=== PATIENT | female | born 1995 | race Caucasian/White ===

== ENCOUNTER 2023-07-29 17:10 | Outpatient (CLI) | payer OTHER ==
--- NOTE | 2023-07-29 20:08 | Ultrasound Report ---
PROCEDURE: OB 1st Trimester INDICATIONS: POSITIVE TEST OUTSIDE/PRIOR DATING DATA: Last menstrual period (LMP): 06/05/2023. LMP-based estimated date of delivery (BOY): 03/11/2024. First dating scan (date and location): 07/29/2023. Estimated date of delivery (BOY) from first dating scan: 03/08/2024. TECHNIQUE: Real-time scanning was performed of the fetus and maternal pelvic organs, with image documentation. COMPARISON: None. FINDINGS: Intrauterine gestational sac present. Embryo: [place]-rump length measures 1.7 cm corresponding to 8 weeks 1 day Heart rate: 167 bpm. Other: Subchorionic hemorrhage is present measuring 1.6 x 1.2 x 1.8 cm. Measurement variability in dating: +/- 4 weeks by LMP, +/- 7 days by mean sac diameter (use before 6 weeks gestation if crown-rump length not able to be measured), +/- 5 days by crown-rump length (6-12 weeks gestation). Maternal organs: Ovaries appear within normal limits. IMPRESSION: Single live intrauterine with gestational age of 8 weeks 1 day. Recommend follow-up imaging at 20-22 weeks for dates and anatomy. Reviewed by: Shital Hedrick MD on 07/29/2023 8:07 PM PDT Approved by: Shital Hedrick MD on 07/29/2023 8:07 PM PDT Station ID: [id number]
== END 2023-07-29 17:11 | disposition home or self-care (01) ==
LOC: DI 17:10
PROVIDERS: ATTEND Obstetrics & Gynecology
DX: Z34.01 Encounter for supervision of normal first pregnancy, first trimester (principal)

== ENCOUNTER 2023-08-01 08:47 | Outpatient (CLI) | payer OTHER ==
[2023-08-01 12:31] LABS: BASOPHILS % (AUTO) 0.4 %; EOSINOPHILS # (AUTO) 0.1 10^3/uL (0.0-0.7); EOSINOPHILS % (AUTO) 1.2 %; HGB - HEMOGLOBIN 13.3 g/dL (12.0-16.0); LYMPHOCYTES # (AUTO) 1.8 10^3/uL (1.5-3.5); LYMPHOCYTES % (AUTO) 24.6 %; MEAN CORPUSCULAR HEMOGLOBIN 30.2 pg (27.0-31.0); MEAN CORPUSCULAR HGB CONC 34.1 g/dL (32.0-36.0); MEAN CORPUSCULAR VOLUME 88.4 fL (81.0-99.0); MEAN PLATELET VOLUME 10.5 fL (7.9-10.8); MONOCYTES # (AUTO) 0.5 10^3/uL (0.0-1.0); MONOCYTES % (AUTO) 6.1 %; NEUTROPHILS # (AUTO) 4.9 10^3/uL (1.5-6.6); NEUTROPHILS % (AUTO) 67.4 %; PLT - PLATELET COUNT 226 10^3/uL (130-450); RED BLOOD COUNT 4.41 10^6/uL (4.20-5.40); RED CELL DISTRIBUTION WIDTH 12.1 % (12.0-15.0); WHITE BLOOD COUNT 7.3 x10^3/uL (4.8-10.8)
[2023-08-02 03:12] LABS: HCV AB Non Reactive (Non Reactive)
[2023-08-02 08:17] LABS: HBsAG SCREEN Negative (Negative)
[2023-08-02 09:16] LABS: RPR Non Reactive (Non Reactive)
[2023-08-02 10:18] LABS: VARICELLA-ZOSTER AB IGG 1498 index (Immune >165)
== END 2023-08-01 08:48 | disposition home or self-care (01) ==
LOC: LAB.N 08:47
PROVIDERS: ATTEND Obstetrics & Gynecology
DX: Z34.00 Encounter for supervision of normal first pregnancy, unspecified trimester (principal); Z36.89 Encounter for other specified antenatal screening
CPT/HCPCS: 36415; 81001; 85025; 86592; 86762; 86787; 86803; 86850; 86900; 86901; 87086; 87340; 87389

== ENCOUNTER 2023-08-13 08:00 | Outpatient (CLI) | payer OTHER ==
[2023-08-13 20:21] LABS: CHLAMYDIA TRACHOMATIS DNA NEGATIVE (NEGATIVE); NEISSERIA GONORRHOEAE DNA NEGATIVE (NEGATIVE); TRICHOMONAS VAGINALIS DNA NEGATIVE (NEGATIVE)
== END 2023-08-13 23:59 | disposition home or self-care (01) ==
LOC: LAB.WC 08:00
PROVIDERS: ATTEND Obstetrics & Gynecology
DX: Z11.3 Encounter for screening for infections with a predominantly sexual mode of transmission (principal)
CPT/HCPCS: 87491; 87591; 87661

== ENCOUNTER 2023-08-14 18:10 | Outpatient (CLI) | payer OTHER | END 2023-08-14 18:11 | disposition home or self-care (01) | LOC: LAB 18:10 | PROVIDERS: ATTEND Obstetrics & Gynecology | DX: Z34.00 Encounter for supervision of normal first pregnancy, unspecified trimester (principal); Z36.89 Encounter for other specified antenatal screening | CPT/HCPCS: 36415; 87389 ==

== ENCOUNTER 2023-10-14 16:16 | Emergency (ER) | payer OTHER ==
[2023-10-14 17:01] LABS: BASOPHILS % (AUTO) 0.2 %; EOSINOPHILS % (AUTO) 0.3 %; HCT - HEMATOCRIT 43.5 % (37.0-47.0); HGB - HEMOGLOBIN 14.3 g/dL (12.0-16.0); LYMPHOCYTES # (AUTO) 0.5 10^3/uL (1.5-3.5); MEAN CORPUSCULAR HGB CONC 32.9 g/dL (32.0-36.0); MEAN CORPUSCULAR VOLUME 91.2 fL (81.0-99.0); MEAN PLATELET VOLUME 9.8 fL (7.9-10.8); MONOCYTES # (AUTO) 0.3 10^3/uL (0.0-1.0); MONOCYTES % (AUTO) 2.6 %; NEUTROPHILS # (AUTO) 8.8 10^3/uL (1.5-6.6); NEUTROPHILS % (AUTO) 91.6 %; PLT - PLATELET COUNT 213 10^3/uL (130-450); RED BLOOD COUNT 4.77 10^6/uL (4.20-5.40); RED CELL DISTRIBUTION WIDTH 12.5 % (12.0-15.0); WHITE BLOOD COUNT 9.7 x10^3/uL (4.8-10.8)
[2023-10-14 17:17] LABS: ALBUMIN 4.1 g/dL (3.2-5.5); ALBUMIN/GLOBULIN RATIO 1.2 (1.0-2.2); ALKALINE PHOSPHATASE 63 IU/L (42-121); ALT ALANINE AMINOTRANSFERASE 15 IU/L (10-60); AST ASPARTATE AMINOTRANSFERASE 15 IU/L (10-42); BILIRUBIN,TOTAL 0.4 mg/dL (0.2-1.0); BUN - BLOOD UREA NITROGEN 9 mg/dL (6-20); CALCIUM 9.7 mg/dL (8.5-10.3); CARBON DIOXIDE - CO2 22 mmol/L (21-32); CHLORIDE 100 mmol/L (101-111); CREATININE 0.5 mg/dL (0.6-1.3); GFR - MDRD 147 (>89); GLUCOSE 105 mg/dL (74-104); POTASSIUM 3.9 mmol/L (3.5-4.5); SODIUM 132 mmol/L (135-145); TOTAL PROTEIN 7.6 g/dL (6.4-8.9)
[2023-10-14 17:20] LABS: LIPASE < 10 U/L (11-82)
--- NOTE | 2023-10-14 18:07 | ED Physician Documentation ---
PD HPI ABD PAIN - Stated complaint Stated Complaint: ABD PX/BACK PX - Chief complaint Chief Complaint: Abd Pain - History obtained from History obtained from: Patient - Additional information Additional information: This is a very nice 28-year-old female who presents with left upper abdominal pain today. The pain does not radiate but is present directly from the left upper abdomen and into the back. She has had no nausea but vomited x 1 and actually feels better now after vomiting, no urinary symptoms including dysuria urgency or frequency, no flank pain, she has no diarrhea or constipation. She has never had similar pain throughout . She continues to feel movement and had a reassuring OB exam yesterday, and previously has had an ultrasound confirming intrauterine . She has not had any vaginal bleeding. Patient feeling quite a bit better after vomiting here. Review of Systems Constitutional: reports: Fever Cardiac: reports: Reviewed and negative Respiratory: reports: Reviewed and negative GI: reports: Abdominal Pain, Vomiting : reports: Reviewed and negative PD PAST MEDICAL HISTORY - Past Medical History Past Medical History: No - Past Surgical History Past Surgical History: Yes HEENT: Tonsil/Adenoidectomy - Present Medications Home Medications: Ambulatory Orders Medication Instructions Recorded Confirmed Ondansetron Odt [Zofran] 4 mg TL Q6H PRN #10 tablet 10/14/23 Pnv 119/Iron Fum/Folic Acid 1 tab PO DAILY 10/14/23 10/14/23 [ 19 Tablet] - Allergies Allergies/Adverse Reactions: Allergies Allergy/AdvReac Type Severity Reaction Status Date / Time Penicillins Allergy Unknown Verified 10/14/23 16:31 - Social History Does the pt smoke?: No Smoking Status: Never smoker Does the pt drink ETOH?: No Does the pt have substance abuse?: No - Immunizations Immunizations are current?: Yes - POLST Patient has POLST: No PD ED PE NORMAL - Vitals Vital signs reviewed: Yes - General General: Alert and oriented X 3, No acute distress, Well developed/nourished - HEENT HEENT: Atraumatic, Moist mucous membranes - Cardiac Cardiac: RRR, No murmur - Respiratory Respiratory: No respiratory distress, Clear bilaterally - Abdomen Abdomen: Normal bowel sounds, Soft, Non tender, Non distended, Other ( heart tones 163) - Back Back: No CVA TTP, No spinal TTP Results - Vitals Vitals: Vital Signs - 24 hr 10/14/23 10/14/23 16:32 18:35 Temperature 36.8 C Heart Rate 100 92 Respiratory 16 14 Rate Blood Pressure 112/77 106/62 O2 Saturation 97 100 Oxygen O2 Source Room air - Labs Labs: Laboratory Tests 10/14/23 10/14/23 10/14/23 16:56 16:56 18:02 WBC 9.7 RBC 4.77 Hgb 14.3 Hct 43.5 MCV 91.2 MCH 30.0 MCHC 32.9 RDW 12.5 Plt Count 213 MPV 9.8 Neut # (Auto) 8.8 H Lymph # (Auto) 0.5 L [place] # (Auto) 0.3 Eos # (Auto) 0.0 Baso # (Auto) 0.0 Absolute Nucleated RBC 0.00 Nucleated RBC % 0.0 Sodium 132 L Potassium 3.9 Chloride 100 L Carbon Dioxide 22 Anion Gap 10.0 BUN 9 Creatinine 0.5 L Estimated GFR (MDRD) 147 Glucose 105 H Calcium 9.7 Total Bilirubin 0.4 AST 15 ALT 15 Alkaline Phosphatase 63 Total Protein 7.6 Albumin 4.1 Globulin 3.5 Albumin/Globulin Ratio 1.2 Lipase < 10 L Urine Color YELLOW Urine Clarity CLEAR Urine pH 5.5 Ur Specific [place] >=1.030 H Urine Protein NEGATIVE Urine Glucose (UA) NEGATIVE Urine Ketones NEGATIVE Urine Occult Blood NEGATIVE Urine Nitrite NEGATIVE Urine Bilirubin NEGATIVE Urine Urobilinogen 0.2 (NORMAL) Ur Leukocyte Esterase NEGATIVE Ur Microscopic Review NOT INDICATED Urine Culture Comments NOT INDICATED PD Medical Decision Making - ED course Complexity details: reviewed results, considered differential, d/w patient ED course: 28-year-old female presented with left upper abdominal pain as described in HPI. Patient is about 18 weeks , G1, P0. She is well-appearing here physical exam, afebrile nontoxic, not able to reproduce the pain right now, she states she actually feels quite a bit better after vomiting here. We obtained lab work which is reassuring including CBC, CMP, urinalysis. She has good heart tones at 163 and has already had ultrasound confirming intrauterine . I discussed with patient that at this time I did recommend supportive measures, I do not see emergent indication for imaging especially in the setting of . Recommended Tylenol if needed, bland diet primary clear liquids today and then advance slowly to bland diet tomorrow, and Zofran as needed. Return precautions reviewed in detail with the patient discharged home in stable condition. Departure - Departure Disposition: 01 Home, Self Care Clinical Impression: Abdominal pain Qualifiers: Abdominal location: left upper quadrant Qualified Code(s): R10.12 - Left upper quadrant pain Condition: Good Instructions: Abdominal Pain Prescriptions: Ondansetron Odt [Zofran] 4 mg TL Q6H PRN #10 tablet PRN Reason: Nausea / Vomiting Comments: Imelda, Your labs today look good and you did not have any concerning findings on your physical exam. The pain may have been from a gastroenteritis or can be from dehydration, constipation, kidney stone. You do not have any signs of a urinary tract infection or other abnormalities on your lab work today. Since you feel better after vomiting, I think we can discharge you home but if you have recurrence of symptoms or develop a fever or new concerns, please return to the ER. I have prescribed some Zofran for you as needed, this is for nausea. Forms: PCP List Discharge Date/Time: 10/14/23 18:44
[2023-10-14 18:11] LABS: BILIRUBIN,URINE NEGATIVE (NEGATIVE); GLUCOSE, URINE (UA) NEGATIVE (NEGATIVE); KETONES,URINE (UA) NEGATIVE (NEGATIVE); LEUKOCYTE ESTERASE, URINE NEGATIVE (NEGATIVE); NITRITE,URINE NEGATIVE (NEGATIVE); OCCULT BLOOD,URINE NEGATIVE (NEGATIVE); PH,URINE 5.5 PH (5.0-7.5); PROTEIN,URINE NEGATIVE (NEGATIVE); UROBILINOGEN,URINE 0.2 (NORMAL) E.U./dL (NORMAL)
[2023-10-14 18:12] LABS: CLARITY,URINE CLEAR (CLEAR)
[2023-10-14 18:43] VITALS: BP 106/62; O2SAT 100
== END 2023-10-14 18:44 | disposition home or self-care (01) ==
LOC: ED 16:16
DX: R10.12 Left upper quadrant pain (principal); R11.10 Vomiting, unspecified
CPT/HCPCS: 36415; 80053; 81001; 81003; 83690; 85025; 87086; 99283; 99284

== ENCOUNTER 2023-10-30 09:29 | Outpatient (CLI) | payer OTHER ==
--- NOTE | 2023-10-30 16:15 | Ultrasound Report ---
PROCEDURE: OB Anatomy Scan INDICATIONS: SUPERVISION OF OUTSIDE/PRIOR DATING DATA: Last menstrual period (LMP): 06/05/2023. LMP-based estimated date of delivery (BOY): 03/11/2024. First dating scan (date and location): 07/29/2023. Estimated date of delivery (BOY) from first dating scan: 03/08/2024. The below data below was generated using the ultrasound BOY of 03/08/2024 TECHNIQUE: Real-time scanning was performed of the fetus, with image documentation and biometric measurements. Endovaginal scanning: Not performed. COMPARISON: None. FINDINGS: General: A single living intrauterine gestation is present. Presentation: Variable Placenta: Placental position is posterior, without previa. Amniotic fluid index: 17.9 cm, 79th percentile for gestational age. heart rate: 147 beats per minute. Maternal cervical canal: 4.78 cm long; normal length is 2.5 cm or more. biometrics: Biparietal diameter: 5.0 cm, 21 weeks 1 day, 38.7 percentile Head circumference: 19.1 cm, 21 weeks 3 days, 36.6 percentile Abdominal circumference: 17.7 cm, 22 weeks 4 days, 78.4 percentile Femur length: 3.65 cm, 21 weeks 4 days, 46.2 percentile Estimated gestational age from initial scan: 21 weeks 3 days Composite gestational age from present scan: 21 weeks 3 days Estimated weight and percentile: 469.1 g, 76 percentile Measurement variability in biometric dating: +/- 10 days from 12-20 weeks gestation, +/- 2 weeks from 20-30 weeks gestation, +/- 3 weeks at 30 weeks gestation or later. Anatomic survey: Neuro: Ventricles are normal at less than 10 mm. Cisterna magna is normal at 3-11 mm. Cerebellum i s normal in size and morphology. Nuchal skin fold: Normal at less than 6 mm between 14 and 20 weeks gestational age. Face: Nose and lips, facial profile are normal. Spine: No evidence for spina bifida. Heart: 4-chambered heart is present, with normal ventricular outflow tracts. Diaphragm: Diaphragm is intact. Stomach: Left-sided stomach is present. Kidneys: No hydronephrosis. Normal is less than 5 mm in 2nd trimester, less than 7 mm in 3rd trimester. Cord: 3 vessel cord has orthotopic insertion. Bladder: Normal in size. Extremities: All 4 extremities are visualized. IMPRESSION: Single living intrauterine at 21 weeks 3 days, BOY of 03/08/2024. Normal anatomy survey. Estimated date weight of 469 g, 76th percentile. Reviewed by: cSott Huitron MD on 10/30/2023 4:14 PM PDT Approved by: Scott Huitron MD on 10/30/2023 4:14 PM PDT Station ID: [id number]
== END 2023-10-30 09:30 | disposition home or self-care (01) ==
LOC: DI 09:29
PROVIDERS: ATTEND Obstetrics & Gynecology
DX: Z34.02 Encounter for supervision of normal first pregnancy, second trimester (principal)

== ENCOUNTER 2024-03-01 12:57 | Inpatient (IN) ==
--- NOTE | 2024-03-01 13:40 | HISTORY & PHYSICAL EXAMINATION ---
Admit History Smoking Status: Never smoker Other Maternal History Other Maternal History: 28-year-old G1, P0 at 38 weeks 4 days gestation admitted for term labor. She has good movement. Denies loss of fluid. No ADAMES/BV or RUQP. No vaginal b leeding. Denies nausea and vomiting. Denies urinary urgency or dysuria. All other symptoms reviewed and were negative except per HPI. Course FOB [place] in [place] Pre- Weight: 169 BMI: 26.94 Blood type: O+ Antibody: negative CBC: PLT 226 HCT 39.0 HGB 13.3 RUB: immune VZV: immune HBsAg: negative HepC: NR RPR/AB-EIA: NR HIV: NR PAP: 1-2 years ago, normal per pt GC/CT: collected 08/12 negative HSV: denies Genetic testing: NIPT Negative. AFP ordered -not done Covid: declined Flu: 11/09 RSV: 01/15 FAS: ordered 09/14 (scheduled 10/29) Placenta: posterior without previa Cord: 3VC DEWAYNE: WNL EFW: 469g 76%ile 50gm OGCT: 117 TDAP: 01/07/24 Breast Pump: 02/01 3rd trimester H/H 12.2/36.9 PLT 199 GBS:self collected 02/12. PCN allergy: negative Contraception: undecided, has used Liletta in the past NST Procedure NST Procedure: NST Procedure Start Time 07:16 Stop Time 07:44 Meds/Allgy Home Medications Ambulatory Orders Medication Instructions Recorded Confirmed vitamins no.119-iron 1 tab PO DAILY 10/14/23 02/20/24 fumarate 29 mg-folic acid 1 mg tablet ( 19) breast pump #1 ea 02/20/24 02/20/24 Allergies Allergies Allergy/AdvReac Type Severity Reaction Status Date / Time Penicillins Allergy Unknown Verified 02/20/24 11:00 [facility] Medical History Medical History (Updated 03/01/24 @ 13:45 by Scooter Mckeon MD) Cyanosis Social History Social History (Updated 12/08/23 @ 08:53 by Dipika Esquivel MA) Smoking Status: Never smoker Do you vape?: No Do you feel safe in your home environment?: Yes Suffered physical, verbal, emotional, or financial abuse?: No History of Abuse: No ETOH Use: None Substance Use: denies use POLST Patient has POLST: No Review of Systems Status of ROS: 10 or more systems reviewed and unremarkable except as noted in history and below Physical Other Notes Labor Progress Note/Additional Text: General: Alert, oriented, no acute distress Head: Normal cephalic atraumatic Eyes: PERRLA, extraocular motions intact. Respiratory: Normal rate of respiration. No accessory muscle use, normal respir atory effort. Cardiovascular: Regular rate and rhythm Abdomen: Gravid, nontender, nondistended Extremities: Normal range of motion Neuro: Oriented x3. Normal movements Psych: Appropriate mood and affect. Normal judgment and insight SVE: 6/80/-2 FHT: 135 bpm baseline, moderate variability, accelerations present, no decelerations. Reactive NST [place]: 2 to 3 minutes Plan for Labor Plan For Labor I expect patient to be DC'd or transferred within 96 hours.: Yes Conclusion/Plan Problem List (1) 38 weeks gestation of : Plan: Admit to L&D, admit labs, epidural at patient's request. Anticipate amniotomy, anticipate . (2) Supervision of normal first in third trimester: (3) Uterine contractions:
[2024-03-01] MEDS ORDERED: lidocaine 1% 20 ML MDV ID PRN (14:22)
[2024-03-01] MEDS ORDERED: TRANEXAMIC ACID IN NACL 1,000 MG/100 ML BAG IV PRN (14:22)
[2024-03-01] MEDS ORDERED: LABETALOL 20 MG/4 ML SYRINGE IVP PRN ×3 (14:22)
[2024-03-01] MEDS ORDERED: OXYTOCIN 10 UNIT/ML VIAL IM PRN (14:22)
[2024-03-01] MEDS ORDERED: miSOPROStoL 200 MCG TABLET PR PRN (14:22)
[2024-03-01] MEDS ORDERED: SODIUM CHLORIDE FLUSH 0.9% 10 ML SYRINGE IVP PRN (14:22)
[2024-03-01] MEDS ORDERED: NIFEdipine 10 MG CAPSULE PO PRN (14:22)
[2024-03-01] MEDS ORDERED: METHYLERGONOVINE 0.2 MG/ML VIAL IM PRN (14:22)
[2024-03-01] MEDS ORDERED: miSOPROStoL 200 MCG TABLET BC PRN (14:22)
[2024-03-01] MEDS ORDERED: fentaNYL 100 MCG/2 ML VIAL IVP PRN (14:22)
[2024-03-01] MEDS ORDERED: TERBUTALINE 1 MG/ML VIAL SUBQ PRN (14:22)
[2024-03-01] MEDS ORDERED: hydrALAZINE INJ 20 MG/ML VIAL IVP PRN (14:22)
[2024-03-01 14:42] LABS: BASOPHILS % (AUTO) 0.2 %; EOSINOPHILS # (AUTO) 0.1 10^3/uL (0.0-0.7); EOSINOPHILS % (AUTO) 0.9 %; HGB - HEMOGLOBIN 13.2 g/dL (12.0-16.0); LYMPHOCYTES # (AUTO) 2.2 10^3/uL (1.5-3.5); MEAN CORPUSCULAR HEMOGLOBIN 30.6 pg (27.0-31.0); MEAN CORPUSCULAR HGB CONC 33.8 g/dL (32.0-36.0); MEAN CORPUSCULAR VOLUME 90.5 fL (81.0-99.0); MEAN PLATELET VOLUME 10.4 fL (7.9-10.8); MONOCYTES # (AUTO) 0.6 10^3/uL (0.0-1.0); MONOCYTES % (AUTO) 5.3 %; NEUTROPHILS # (AUTO) 8.6 10^3/uL (1.5-6.6); NEUTROPHILS % (AUTO) 74.2 %; PLT - PLATELET COUNT 225 10^3/uL (130-450); RED BLOOD COUNT 4.31 10^6/uL (4.20-5.40); RED CELL DISTRIBUTION WIDTH 13.2 % (12.0-15.0); WHITE BLOOD COUNT 11.5 x10^3/uL (4.8-10.8)
--- NOTE | 2024-03-01 15:30 | PHARMACY PROGRESS NOTE ---
Best Possible Medication History Admit Date and Time: 03/01/24 [id number] Home Medications Medication Instructions Recorded Confirmed Type vitamins no.119-iron 1 tab PO DAILY 10/14/23 03/01/24 History fumarate 29 mg-folic acid 1 mg tablet ( 19) breast pump #1 ea 02/20/24 02/20/24 Rx Processed by: Pharmacy (Medication reconciliation completed by clinical pharmacy technicianArnaud) Medications reviewed in ED?: No Medication History completed: Yes Patient Interview: Completed Secondary Source(s): Insurance records [facility] Statement: As the person ultimately responsible for medication therapy, providers are able to order a medication from an existing home medication list in [facility] via the "Reconcile Routine" prior to Confirmation of that medication by desktop support consultant. Such practice is discouraged except when the physician, in their clinical judgment, deems that a medical need exists for a medication without regard to previous use.
[2024-03-01] MEDS ORDERED: LIDOCAINE 2%-EPI 1:100000 20 ML MDV ONE (15:57)
[2024-03-01] MEDS ORDERED: ROPIVACAINE 0.2% 200 MG/100 ML BAG EP ONE (15:58)
[2024-03-01] MEDS: SODIUM CHLORIDE 0.9% 500 ML IV PRN (16:39)
[2024-03-01] MEDS ORDERED: ePHEDrine 50 MG/ML VIAL IVP ONE (16:40)
[2024-03-01] MEDS ORDERED: PHENYLEPHRINE HCL 0.5 MG/5 ML AMPULE ONE (16:40)
[2024-03-01] MEDS ORDERED: diphenhydrAMINE INJ 50 MG/ML VIAL IVP PRN (17:26)
[2024-03-01] MEDS ORDERED: ePHEDrine 50 MG/ML VIAL IVP PRN (17:26)
[2024-03-01] MEDS ORDERED: NALOXONE 0.4 MG/ML VIAL IVP PRN (17:26)
[2024-03-01] MEDS ORDERED: LACTATED RINGERS 500 ML IV ONE (17:26)
[2024-03-01] MEDS ORDERED: ONDANSETRON 4 MG/2 ML VIAL IVP PRN (17:26)
[2024-03-01] MEDS ORDERED: METOCLOPRAMIDE 10 MG/2 ML VIAL IVP PRN (17:26)
[2024-03-01] MEDS ORDERED: NALBUPHINE 10 MG/ML AMP IVP PRN (17:26)
--- NOTE | 2024-03-01 17:26 | ANESTHESIA PROCEDURE NOTE ---
Pre-Anesthesia VS, & Labs Diagnosis Surgical Diagnosis:: 38/4 weeks, in labor requests epidural Procedure Procedure: placement of labor epidural Vitals Height (in): 5 ft 7 in Weight (kg): 95 kg Body Mass Index: 32.8 BMI Classification: Obese NPO Last Fluid Intake: now on clears Is Patient ?: Yes Estimated Due Date:: 03/01/24 Lab Results Current Lab Results: Laboratory Tests 03/01/24 14:00: WBC 11.5 H, RBC 4.31, Hgb 13.2, Hct 39.0, MCV 90.5, MCH 30.6, MCHC 33.8, RDW 13.2, Plt Count 225, MPV 10.4, Neut # (Auto) 8.6 H, Lymph # (Auto) 2.2, [place] # (Auto) 0.6, Eos # (Auto) 0.1, Baso # (Auto) 0.0, Absolute Nucleated RBC 0.00, Nucleated RBC % 0.0, Blood Type O POSITIVE, Antibody Screen NEGATIVE Lab results reviewed: Yes 03/01/24 14:00 Meds/Allgy Home Medications Ambulatory Orders Medication Instructions Recorded Confirmed vitamins no.119-iron 1 tab PO DAILY 10/14/23 03/01/24 fumarate 29 mg-folic acid 1 mg tablet ( 19) breast pump #1 ea 02/20/24 02/20/24 Allergies Allergies Allergy/AdvReac Type Severity Reaction Status Date / Time Penicillins Allergy Unknown Verified 02/20/24 11:00 [facility] TO [facility] Medical History Medical History Cyanosis Social History Social History Smoking Status: Never smoker Do you dip or chew tobacco?: No Do you vape?: No Do you feel safe in your home environment?: Yes Suffered physical, verbal, emotional, or financial abuse?: No History of Abuse: No ETOH Use: None Substance Use: denies use POLST Patient has POLST: No Anesthesia Exam (Expanded) Exam General: Alert and Mild distress Dental: WNL Mouth Openin Fingerbreadth Neck Mobility: Normal Thyromental Distance: 4-6 cm Respiratory: Lungs clear Cardiovascular: Regular rate Plan Plan Anesthesia Type: Epidural Consent for Procedure(s) Verified and Reviewed: Yes Code Status: Attempt Resuscitation ASA Classification ASA classification: 2-Mild systemic disease Is this case an emergency?: No
[2024-03-01] MEDS ORDERED: SODIUM CHLORIDE 0.9% 500 ML IV ONE (18:12)
[2024-03-01] MEDS: SODIUM CHLORIDE FLUSH 0.9% 10 ML SYRINGE IVP SCH (18:26)
[2024-03-02] MEDS: ROPIVACAINE 0.2% 200 MG/100 ML BAG EP PRN (00:50)
[2024-03-02] MEDS ORDERED: CALCIUM CARBONATE CHEW 500 MG TABLET ONE (01:17)
[2024-03-02] MEDS: OXYTOCIN/SODIUM CHLORIDE 500 ML IV PRN (01:52)
[2024-03-02] MEDS ORDERED: SIMETHICONE CHEW 80 MG TABLET PO PRN (02:11)
[2024-03-02] MEDS ORDERED: ONDANSETRON 4 MG/2 ML VIAL IVP PRN (02:11)
[2024-03-02] MEDS ORDERED: CALCIUM CARBONATE CHEW 500 MG TABLET PO PRN (02:11)
--- NOTE | 2024-03-02 02:14 | DELIVERY NOTE ---
Delivery Note Labor Labor: positive Augmented by ARM Delivery Method Delivery Method: positive Spontaneous vaginal delivery Presentation Presentation: positive Vertex Nuchal Cord Nuchal Cord: positive None Amniotic Fluid Description Amniotic Fluid Description: positive Clear Laceration Laceration: positive 2nd degree and Perineal Suture Suture Type: positive Vicryl Suture Size: positive 3-0 : positive Placed in direct skin contact with mother sex: positive Male Cord Cord: positive 3 vessels Placenta Placenta: positive Intact Estimated Blood Loss Estimated Blood Loss (in cc): 400 Post Delivery Events Post Delivery Events: positive No post delivery events Delivery Comments (Free Text/Narrative) Delivery Comments (Free Text/Narrative): Preoperative Diagnoses 38 weeks gestation Term labor Postoperative Diagnoses Same Delivery of live ozuna Status post spontaneous vaginal delivery Summary Patient presented at 38 weeks gestation in active labor. Progressed throughout the day on her own with several triage visits until active labor. She continued inga regularly and received an epidural for pain control. Controlled amniotomy was performed and she continued to contract until complete and ready to push. Delivery Summary: Patient was placed in the dorsal lithotomy position. Upon maternal pushing the head was delivered atraumatically followed by the anterior shoulder, posterior shoulder, then the remainder of the infant's body. A male was delivered with APGARS of 9 at 1 minute and 9 at 5 minutes. The infant was placed on its mother's chest . After the cord finished pulsating, the umbilical cord was clamped times two and cut. The placenta delivered intact with three vessel cord. Placenta was not sent to pathology. Thirty units of Pitocin were added to the IV fluid and allowed to run freely. Uterine massage was performed until uterus was deemed firm. Upon inspection the perineum, she had a second-degree midline laceration that was repaired in a running fashion. Upon re-inspection the patient was hemostatic. Uterus again massaged and found to be firm. Needle and sponge counts were correct. Patient was stable and allowed to recover in L&D room. Infant was stable and remained in room with mother. weight is pending at this time.
[2024-03-02] MEDS ORDERED: LACTATED RINGERS 1,000 ML IV SCH (03:00)
[2024-03-02] MEDS: IBUPROFEN 600 MG TABLET PO SCH (03:39)
[2024-03-02] MEDS: ACETAMINOPHEN 500 MG TABLET PO SCH (03:40)
[2024-03-02] MEDS: WITCH HAZEL/GLYCERIN 1 PAD TOP PRN (03:41)
--- NOTE | 2024-03-03 14:00 | PROVIDER PROGRESS NOTE ---
Subjective Prog Note Date Prog Note Date: 03/03/24 Subjective Subjective: S: She reports that she is feeling well overall. Pain is well controlled with current medications. She is ambulating without difficulty. She is tolerating a normal diet. She is voiding without difficulty. Lochia reported as normal She is trying to breast feed, but struggling. Would prefer to stay until tomorrow to work on breast feeding. Current Medications Current Medications Current Medications: Current Medications Generic Name Dose Route Start Last Admin Trade Name Freq PRN Reason Stop Dose Admin Acetaminophen 1,000 mg 03/02/24 04:00 03/03/24 13:53 Acetaminophen 500 Mg Tablet PO 1,000 mg Q8H MATY Administration Calcium Carbonate/Glycine 500 mg 03/02/24 02:11 Calcium Carbonate Chew 500 Mg Tablet PO TID PRN Heartburn Ibuprofen 600 mg 03/02/24 04:00 03/03/24 10:53 Ibuprofen 600 Mg Tablet PO 600 mg Q6H MATY Administration Ondansetron HCl 4 mg 03/02/24 02:11 Ondansetron 4 Mg/2 Ml Vial IVP Q4HR PRN Nausea / Vomiting Simethicone 80 mg 03/02/24 02:11 Simethicone Chew 80 Mg Tablet PO TID PRN Gas Witch Mela/Glycerin 1 pad 03/02/24 02:11 03/02/24 03:41 Witch Mela/Glycerin 1 Pad TOP 1 pad PRN PRN Administration ITCHING Objective Vital Signs/Intake & Output Vital Signs: Vital Signs x48h Temp Pulse Resp BP Pulse Ox 03/03/24 12:02 98.4 F 78 17 118/63 99 03/03/24 08:39 98.2 F 77 14 107/64 99 Intake & Output: Intake & Output 02/29/24 03/01/24 03/02/24 03/03/24 23:59 23:59 23:59 23:59 Intake Total 500 / 500 660 / 660 Output Total 250 / 250 1250 / 1250 Balance 250 / 250 -590 / -590 Weight (kg) 209 lb 7.026 oz Objective Comments/Other: Gen: NAD Chest: non labored respirations Abd: gravid, non tender, fundus firm Ext: trace LE edema, no evidence of DVT Lab Results 03/01/24 14:00 Assessment/Plan Problem List (1) care and examination of lactating mother: Impression: Continue routine care. Anticipate discharge home tomorrow.
[2024-03-03] MEDS: DOCUSATE SODIUM 100 MG CAPSULE PO SCH (21:32)
--- NOTE | 2024-03-04 08:48 | Discharge Summary ---
Discharge Summary Admit Date: 03/01/24 Discharge Date: 03/04/24 Discharging Provider: Dipika Younger DO Code Status: Attempt Resuscitation Discharge Facility Name: [facility] DIAGNOSES Admission Diagnoses: 28yo admitted on 03/01/24 at 38.4w in labor, 6cm. HPI History of Present Illness: 28yo admitted on 03/01/24 at 38.4w in labor, 6cm. HOSPITAL COURSE Hospital Course: 28yo admitted on 03/01/24 at 38.4w in labor, 6cm. Received epidural. AROM. 03/02/24. Recovering appropriately. Feels ready for discharge home PPD#2. Ambulating, voiding, tolerating regular diet. . Mood is good. care reviewed, all questions answered. ALLERGIES Allergies Allergy/AdvReac Type Severity Reaction Status Date / Time Penicillins Allergy Unknown Verified 03/03/24 13:55 MEDICATIONS Ambulatory Orders Medication Instructions Recorded Confirmed vitamins no.119-iron 1 tab PO DAILY 10/14/23 03/01/24 fumarate 29 mg-folic acid 1 mg tablet ( 19) breast pump #1 ea 02/20/24 02/20/24 docusate sodium 100 mg capsule 100 mg PO BID #60 caps 03/03/24 (Colace) PHYSICAL EXAM AT DISCHARGE General Appearance: positive No acute distress Respiratory: positive No respiratory distress Abdomen: positive Other (FF) Skin: positive Color nml Extremities: positive Non-tender and Pedal edema Neurologic/Psychiatric: positive Oriented x3 LABS 03/01/24 14:00 QUALITY (Female Hip Fx Only) Was patient sent home on osteoporosis medication?: No FOLLOW UP Follow Up: 2w TIME SPENT Time Spent in Discharge (Minutes): 25 Discharge Plan Discharge Patient Disposition: Home, Self Care Condition: Good Medically Cleared Date:: 03/04/24 Prescriptions: New docusate sodium [Colace] 100 mg capsule 100 mg PO BID Qty: 60 0RF Continued 19 1 EACH tablet 1 tab PO DAILY (DME) breast pump Device See Rx Instructions .Route Qty: 1 0RF Rx Instructions: As directed Activity Restrictions: Activity as Tolerated Diet: Regular Print Language: Croatian Patient Instructions: Vaginal After, Depression
[2024-03-04 10:33] VITALS: BP 108/63; TEMP 98.1; O2SAT 98
--- NOTE | 2024-03-04 11:30 | Labor Flowsheet ---
Labor Flowsheet Datetime Report Generated by CPN: 03/04/2024 11:30 Datetime: 03/04/2024 09:34 VITAL SIGNS NBP Sys/Natali/Mean (mmHg): 108 : 63 : 73 Pulse: 75 Datetime: 03/03/2024 07:00 Stage of : Datetime: 03/02/2024 03:00 SpO2 (%): 97 Datetime: 03/02/2024 01:52 MEDICATIONS Medication Comments: PP pitocin started 200ml/hr per MD Datetime: 03/02/2024 01:50 LaborFlag: Labor Datetime: 03/02/2024 01:49 UTERINE ACTIVITY Monitor Mode: External Frequency (min): 1-3 Duration (sec): 50-60 Pattern: Normal: <= 5 Contractions in 10 Minutes FHR Baseline Changes: No Baseline Change Variability: Moderate 6-25 bpm Accelerations: None Decelerations: Early; Variable Category: Category II Datetime: 03/02/2024 01:44 COMMUNICATION Communication: Provider at Bedside Datetime: 03/02/2024 00:45 ASSESSMENT A Monitor Mode: External US Datetime: 03/02/2024 00:42 Patient Care Comments: Young cath deflated, 10ml removed. STAGE 2 Pushing Position: Pushing with Contractions Datetime: 03/02/2024 00:15 FHR Baseline Rate : 155 Datetime: 03/02/2024 00:00 Resting Tone (Palpate): Relaxed Datetime: 03/01/2024 23:57 Contraction Comments: no urge to push Datetime: 03/01/2024 23:21 VAGINAL EXAM Dilatation (cm): 10.0 Effacement (%): 100 Station: 1 Exam by: [email or web address] Vaginal Exam Comments: no urge to push Datetime: 03/01/2024 22:53 Monitor Interventions for UA: [place] Adjusted Datetime: 03/01/2024 22:50 Patient Position/Activity: Right Extreme Hygiene: Deyanira Care Datetime: 03/01/2024 22:29 Temperature (C): 37.1 Datetime: 03/01/2024 22:01 Comments: unknown decel vs maternal heart rate Datetime: 03/01/2024 20:05 Anesthesia Level Check: T10- Umbilicus Anesthesia Comments: pt. feeling contraction on left lower abd. Pt. pushed PCEA and pt. turned on all the way on her left side. Will cont. to montior. B/L T10. Datetime: 03/01/2024 19:51 PROCEDURE TIME OUT Procedure Verify: Correct Patient Identity Epidural Procedure Other: Cath Intact Datetime: 03/01/2024 19:42 Communication Comments: /1. Per Provider recheck CE in a couple of hours or PRN. Datetime: 03/01/2024 19:30 Cervix, Position: Midposition Datetime: 03/01/2024 19:10 Pain Presence: None/Denies TEACHING Instructional Method: Verbal Plan of Care: Plan of Care Discussed; Vaginal Delivery; Induction Labor/Induction: Induction Pain Management: Epidural Related: Common Discomforts of ; Activity and Rest Datetime: 03/01/2024 19:00 Quality: Moderate Datetime: 03/01/2024 17:30 I/O Interventions: Young Cath Inserted Datetime: 03/01/2024 17:22 Membrane Status: Ruptured Membranes Rupture Method: Artificial Amniotic Fluid Amount: Moderate Datetime: 03/01/2024 17:06 Vital Sign Comments: radial maternal HR palpated. Palpates low 100's. Patient taling with RN, den ies complaint Datetime: 03/01/2024 17:02 PAIN Pain Scale: 0 Datetime: 03/01/2024 17:00 Actions for Decelerations: Provider Notified Datetime: 03/01/2024 16:59 Provider Notified (Name): Dr. Mike Datetime: 03/01/2024 16:39 PATIENT CARE IV/Blood Work: IV Bolus Started Datetime: 03/01/2024 16:29 Epidural Procedure: Test Dose Datetime: 03/01/2024 16:26 ANESTHESIA Anesthesia Plans: Epidural Datetime: 03/01/2024 15:58 Monitor Interventions for FHR: Ultrasound Adjusted Datetime: 03/01/2024 15:53 Notification Reason: Labor Status Datetime: 03/01/2024 15:30 Pain Goal: 5 Pain Coping: Requesting Pain Medication or Epidural Pain Assessment Comments: Requests epidural Datetime: 03/01/2024 15:19 Pain Relief Measures: Pain Medication Given Datetime: 03/01/2024 14:56 Respirations: 18 Datetime: 03/01/2024 13:10 Cervix, Consistency: Soft
== END 2024-03-04 11:29 | disposition home or self-care (01) | DRG 807 ==
LOC: WFO 12:57 → FBP 13:00
PROVIDERS: ADMIT Obstetrics & Gynecology; ATTEND Obstetrics & Gynecology
DX: Z3A.38 38 weeks gestation of pregnancy; O99.214 Obesity complicating childbirth; O92.70 Unspecified disorders of lactation; O70.1 Second degree perineal laceration during delivery; Z37.0 Single live birth